=== PATIENT | male | born 1975 | race Caucasian/White ===

== ENCOUNTER → 2017-02-08 | Outpatient (CLI) | payer SELFPAY ==
[~2017-02-08] MED LIST: CLIN300C86 PO; CLON0.3T3 PO; POLY17PO6 PO
--- NOTE | 2017-02-08 16:54 | DI ---
Indication: ITS.REASON: M54.42 LUMBAGO WITH SCIATICA, LEFT SIDE PROCEDURE: MRI LUMBAR SPINE W/O CONTRAST: Encounter: Initial Comparison: Lumbar spine radiograph dated August 01, 2012 Technique: Multiplanar multisequence MR imaging of the lumbar spine was performed without contrast. Findings: Alignment of the lumbar spine is within normal limits. No acute fracture. Bone marrow signal intensity is normal. Conus medullaris terminates normally at L1. The paraspinal soft tissues are within normal limits. Segmental analysis: L1-L2: Normal L2-L3: Normal L3-L4: Normal L4-L5: Minor disk desiccation without height loss. No disk protrusion, central canal or neural foraminal stenosis. Mild degenerative facet hypertrophy contributing to mild right neural foraminal stenosis. No left foraminal narrowing. L5-S1: Mild disk desiccation without height loss. Degenerative facet hypertrophy. No focal disk protrusion or central canal stenosis. Severe right and moderate left neural foraminal stenosis. Impression: Degenerative facet disease at L4-L5 and L5-S1 with neural foraminal stenosis. .
== END ==
LOC: IMA 14:52
PROVIDERS: ATTEND Nurse Practitioner Family
DX: M48.06 Spinal stenosis, lumbar region (principal)